=== PATIENT | female | born 1975 | race Hispanic/Latino ===

== ENCOUNTER 2018-03-10 23:15 | Emergency (ER) | payer MEDICAID, OTHER ==
[2018-03-10 23:53] LABS: APPEARANCE,URINE Clear (CLEAR); BILIRUBIN,URINE Negative (NEGATIVE); COLOR,URINE Yellow (YELLOW); GLUCOSE, URINE (UA) Negative (NEGATIVE); KETONES,URINE Negative (NEGATIVE); LEUKOCYTE ESTERASE ,URINE Negative (NEGATIVE); NITRATE,URINE Negative (NEGATIVE); OCCULT BLOOD,URINE Negative (NEGATIVE); PROTEIN,URINE Negative (NEGATIVE)
[2018-03-10 23:54] LABS: HCG,QUAL RESULT NEGATIVE (NEGATIVE)
[2018-03-10 23:57] LABS: BASOPHILS % (AUTO) 0.9 % (0.0-5.0); EOSINOPHILS % (AUTO) 5.9 % (0.0-8.0); HEMATOCRIT 34.7 % (36-48); LYMPHOCYTES % (AUTO) 29.6 % (21.0-51.0); MEAN CORPUSCULAR HEMOGLOBIN 29.9 pg (27.0-33.0); MEAN CORPUSCULAR VOLUME 87.8 fL (79-99); MONOCYTES % (AUTO) 9.1 % (3.0-13.0); NEUTROPHILS % (AUTO) 54.5 % (40.0-77.0); NUCLEATED RED BLOOD CELLS 0.1 % (0.0-0.19); PLATELET COUNT (AUTO) 296 K/uL (130-400); RED BLOOD CELL COUNT(AUTO) 3.95 MIL/uL (4.00-5.50); RED CELL DISTRIBUTION WIDTH 14.5 % (11.0-15.5); WHITE BLOOD COUNT (AUTO) 8.8 K/uL (4.8-10.8)
[2018-03-11] LABS: AMPHET/METH SCREEN,URINE NEGATIVE (NEGATIVE); BARBITURATE SCREEN, URINE NEGATIVE (NEGATIVE); BENZODIAZEPINES SCREEN,URINE NEGATIVE (NEGATIVE); CANNABINOID SCREEN,URINE NEGATIVE (NEGATIVE); COCAINE SCREEN,URINE NEGATIVE (NEGATIVE); OPIATE SCREEN,URINE NEGATIVE (NEGATIVE); PHENCYCLIDINE SCREEN,URINE NEGATIVE (NEGATIVE)
[2018-03-11 00:10] LABS: CREATININE 0.8 mg/dL (0.5-1.5); POTASSIUM 3.7 mmol/L (3.5-5.1)
[2018-03-11 00:17] LABS: INR 0.95 (0.85-1.15); PARTIAL THROMBOPLASTIN TIME 22.8 SEC (26.3-35.5)
[2018-03-11 00:21] LABS: ALBUMIN 3.6 g/dL (3.5-5.0); BILIRUBIN,TOTAL 0.5 mg/dL (0.2-1.0); TOTAL PROTEIN, SERUM 7.7 g/dL (6.0-8.3)
[2018-03-11] MEDS ORDERED: DiphenhydrAMINE HCL 50 MG/ML VIAL ONE (00:42)
[2018-03-11] MEDS ORDERED: KETOROLAC TROMETHAMINE 30MG/ML ONE (00:42)
[2018-03-11] MEDS ORDERED: METOCLOPRAMIDE 10 MG/2 ML VIAL ONE (00:42)
== END 2018-03-11 01:27 | disposition home or self-care (01) ==
LOC: EDH 23:15
DX: R51 Headache (principal); H53.8 Other visual disturbances
CPT/HCPCS: 36415; 80053; 80305; 81003; 81025; 82550; 82553; 84484; 85025; 85610; 85730; 93005; 96374; 96375; 99285; J1200; J1885; J2765

== ENCOUNTER 2019-02-28 12:04 | Emergency (ER) | payer OTHER | END 2019-02-28 13:22 | disposition home or self-care (01) | LOC: EDH 12:04 | DX: S83.8X1A Sprain of other specified parts of right knee, initial encounter (principal); W18.39XA Other fall on same level, initial encounter; Y93.01 Activity, walking, marching and hiking; Y92.69 Other specified industrial and construction area as the place of occurrence of the external cause; Y99.8 Other external cause status ==

== ENCOUNTER 2019-08-19 15:41 | Emergency (ER) | payer MEDICAID, OTHER ==
[2019-08-19 16:10] LABS: APPEARANCE,URINE Clear (CLEAR); BILIRUBIN,URINE Negative (NEGATIVE); COLOR,URINE Yellow (YELLOW); GLUCOSE, URINE (UA) Negative (NEGATIVE); KETONES,URINE Negative (NEGATIVE); LEUKOCYTE ESTERASE ,URINE Negative (NEGATIVE); NITRATE,URINE Negative (NEGATIVE); OCCULT BLOOD,URINE Negative (NEGATIVE); PH,URINE 6.5 (5.0-8.0); PROTEIN,URINE Negative (NEGATIVE); UROBILINOGEN,URINE 0.2 mg/dL (0.2-1.0)
[2019-08-19 16:15] LABS: HCG,QUAL RESULT NEGATIVE (NEGATIVE)
[2019-08-19 16:25] LABS: AMPHET/METH SCREEN,URINE NEGATIVE (NEGATIVE); BARBITURATE SCREEN, URINE NEGATIVE (NEGATIVE); BENZODIAZEPINES SCREEN,URINE NEGATIVE (NEGATIVE); CANNABINOID SCREEN,URINE NEGATIVE (NEGATIVE); COCAINE SCREEN,URINE NEGATIVE (NEGATIVE); OPIATE SCREEN,URINE NEGATIVE (NEGATIVE); PHENCYCLIDINE SCREEN,URINE NEGATIVE (NEGATIVE)
[2019-08-19] MEDS ORDERED: METOCLOPRAMIDE 10 MG TABLET ONE (16:42)
[2019-08-19] MEDS ORDERED: ACETAMINOPHEN EXTRA STRENGTH 500 MG TABLET ONE (16:43)
== END 2019-08-19 18:01 | disposition home or self-care (01) ==
LOC: EDH 15:41
DX: R51 Headache (principal); N92.6 Irregular menstruation, unspecified
CPT/HCPCS: 80305; 81003; 81025

== ENCOUNTER 2021-11-05 21:09 | Emergency (ER) | payer MEDICAID, OTHER ==
[~2021-11-05] VITALS: Ht 152.4 cm; Wt 74.8 kg
[2021-11-05 21:15] VITALS: BP 112/61
[2021-11-05] MEDS ORDERED: KETOROLAC 30MG VIAL (30MG/ML) IM ONE (22:00)
[2021-11-05] MEDS ORDERED: KETOROLAC 30MG VIAL (30MG/ML) ONE (22:17)
[2021-11-05] MEDS ORDERED: IBUP-2070 PO (23:04)
== END 2021-11-05 23:48 | disposition home or self-care (01) ==
LOC: EDH 21:09
DX: M25.521 Pain in right elbow (principal); M25.421 Effusion, right elbow; Z88.6 Allergy status to analgesic agent; Z79.899 Other long term (current) drug therapy; W22.8XXA Striking against or struck by other objects, initial encounter; Y93.89 Activity, other specified; Y92.89 Other specified places as the place of occurrence of the external cause; Y99.8 Other external cause status
CPT/HCPCS: 29105; 73080; 96372; 99283; J1885

== ENCOUNTER 2022-01-14 09:55 | Emergency (ER) | payer OTHER ==
[~2022-01-14] VITALS: Ht 152.4 cm; Wt 74.8 kg
[~2022-01-14 09:55] MED LIST: IBUP-2070 PO
[2022-01-14] MEDS ORDERED: ACET-66 PO (10:42)
[2022-01-14 11:03] VITALS: BP 145/75
== END 2022-01-14 11:04 | disposition home or self-care (01) ==
LOC: EDH 09:55
DX: M25.521 Pain in right elbow (principal); Z88.6 Allergy status to analgesic agent; Z79.1 Long term (current) use of non-steroidal anti-inflammatories (NSAID)
CPT/HCPCS: 73070

== ENCOUNTER 2023-05-12 12:00 | Emergency (ER) | payer MEDICAID, OTHER ==
[~2023-05-12] VITALS: Ht 157.5 cm; Wt 79.4 kg
[~2023-05-12 12:00] MED LIST changes: +ACET-66 PO
[2023-05-12 12:44] VITALS: BP 142/63; PULSE 88; RESP 17
[2023-05-12 14:30] LABS: RAPID GROUP A STREP positive (NEGATIVE)
[2023-05-12] MEDS ORDERED: ONDANSETRON ODT 4MG TAB SL ONE (14:30)
[2023-05-12 14:38] LABS: INFLUENZA TYPE A Negative For Type A (NEGATIVE); INFLUENZA TYPE B Negative For Type B (NEGATIVE)
[2023-05-12 14:41] LABS: COVID19 (SARS ANTIGEN RAPID) PRESUMPTIVE NEGATIVE (NEGATIVE)
[2023-05-12 14:54] LABS: HCG,QUALITATIVE URINE NEGATIVE (NEGATIVE)
[2023-05-12 14:59] LABS: ADD UA MICROSCOPIC YES; APPEARANCE,URINE CLEAR (CLEAR); BILIRUBIN,URINE NEGATIVE (NEGATIVE); COLOR,URINE LIGHT-YELLOW (YELLOW); GLUCOSE, URINE (UA) >=1000 mg/dL (NEGATIVE); KETONES,URINE 40 mg/dL (NEGATIVE); LEUKOCYTE ESTERASE ,URINE NEGATIVE Leu/uL (NEGATIVE); NITRATE,URINE NEGATIVE (NEGATIVE); PROTEIN,URINE NEGATIVE (NEGATIVE); UROBILINOGEN,URINE 0.2 mg/dL (0.2-1.0)
[2023-05-12 15:00] LABS: BACTERIA,URINE RARE /HPF (None Seen); RBC,URINE 0-1 /HPF (0-1); SQUAMOUS EPITHELIAL CELL,UR RARE /HPF (0-2); WBC,URINE 0-1 /HPF (0-1)
[2023-05-12] MEDS ORDERED: IBUP-2070 PO (15:28)
[2023-05-12] MEDS ORDERED: AMOX-426 PO (15:28)
[2023-05-12] MEDS ORDERED: CEFTRIAXONE 1G VIAL IM ONE (15:30)
[2023-05-12] MEDS ORDERED: KETOROLAC 30MG VIAL (30MG/ML) IM ONE (15:45)
== END 2023-05-12 15:47 | disposition home or self-care (01) ==
LOC: EDH 12:00
DX: J32.9 Chronic sinusitis, unspecified (principal); J02.0 Streptococcal pharyngitis; F41.9 Anxiety disorder, unspecified; Z20.822 Contact with and (suspected) exposure to COVID-19; Z87.19 Personal history of other diseases of the digestive system; Z79.899 Other long term (current) drug therapy; Z98.890 Other specified postprocedural states; Z88.6 Allergy status to analgesic agent
CPT/HCPCS: 99284; 87426; 87880; 87804 ×2; 81001; 81025; 96372 ×2; 93005; J0696; J1885

== ENCOUNTER 2023-08-30 21:43 | Emergency (ER) | payer OTHER ==
[~2023-08-30] VITALS: Ht 152.4 cm; Wt 59.0 kg
[2023-08-30 21:43] VITALS: BP 143/77; PULSE 79; RESP 16
[~2023-08-30 21:43] MED LIST changes: +AMOX-426 PO
[2023-08-30] MEDS ORDERED: CYCL-309 PO (21:52)
== END 2023-08-30 22:00 | disposition home or self-care (01) ==
LOC: EDH 21:43
DX: M62.838 Other muscle spasm (principal); R07.81 Pleurodynia; Z79.899 Other long term (current) drug therapy

== ENCOUNTER 2024-07-05 21:54 | Inpatient (IN) | payer SELFPAY ==
[~2024-07-05] VITALS: Ht 154.9 cm; Wt 57.8 kg
[~2024-07-05 21:54] MED LIST changes: +CYCL-309 PO
[2024-07-05 22:41] LABS: BASOPHILS # (AUTO) 0.06 K/uL (0.00-0.20); BASOPHILS % (AUTO) 0.7 % (0.0-5.0); EOSINOPHILS # (AUTO) 0.19 K/uL (0.00-0.70); EOSINOPHILS % (AUTO) 2.2 % (0.0-8.0); HEMATOCRIT 36.6 % (36-48); IMMATURE GRANULOCYTE ABSOLUTE 0.03 K/uL (0-1); LYMPHOCYTES # (AUTO) 3.4 K/uL (1.0-4.8); LYMPHOCYTES % (AUTO) 39.4 % (21.0-51.0); MEAN CORPUSCULAR HEMOGLOBIN 31.8 pg (27.0-33.0); MEAN CORPUSCULAR HGB CONC 36.1 g/dL (32.0-36.0); MEAN CORPUSCULAR VOLUME 88.2 fL (79-99); MONOCYTES # (AUTO) 0.7 K/uL (0.1-1.0); MONOCYTES % (AUTO) 7.8 % (3.0-13.0); NEUTROPHILS # (AUTO) 4.3 K/uL (1.8-7.7); NEUTROPHILS % (AUTO) 49.6 % (40.0-77.0); PLATELET COUNT (AUTO) 263 K/uL (130-400); RED BLOOD CELL COUNT(AUTO) 4.15 MIL/uL (4.00-5.50); RED CELL DISTRIBUTION WIDTH 11.6 % (11.0-15.5); WHITE BLOOD COUNT (AUTO) 8.7 K/uL (4.8-10.8)
[2024-07-05 22:52] LABS: CREATININE 0.6 mg/dL (0.5-1.0); POTASSIUM 3.6 mmol/L (3.5-5.1)
[2024-07-05 23:04] LABS: APPEARANCE,URINE CLEAR (CLEAR); BILIRUBIN,URINE NEGATIVE (NEGATIVE); COLOR,URINE LIGHT-YELLOW (YELLOW); GLUCOSE, URINE (UA) >=1000 mg/dL (NEGATIVE); KETONES,URINE NEGATIVE (NEGATIVE); LEUKOCYTE ESTERASE ,URINE NEGATIVE Leu/uL (NEGATIVE); NITRATE,URINE NEGATIVE (NEGATIVE); OCCULT BLOOD,URINE NEGATIVE (NEGATIVE); PH,URINE 5.5 (5.0-8.0); PROTEIN,URINE NEGATIVE (NEGATIVE); SQUAMOUS EPITHELIAL CELL,UR RARE /HPF (0-2); UROBILINOGEN,URINE 0.2 mg/dL (0.2-1.0); WBC,URINE 0-1 /HPF (0-1)
[2024-07-05] MEDS: 0.9%NACL 1000ML 1,000 ML IV ONE (23:47)
[2024-07-05] MEDS: INSULIN humuLIN R 100 UNIT/ML 3ML IV ONE (23:48)
[2024-07-06] MEDS: ondanSETRON 4MG INJ IVP ONE (00:19)
[2024-07-06] MEDS: morPHINE 2 MG SYG IVP ONE (00:20)
[2024-07-06] MEDS ORDERED: morPHINE 2 MG SYG IV PRN (02:00)
[2024-07-06] MEDS ORDERED: GLUCAGON 1MG KIT 1 MG ML IM PRN (02:00)
[2024-07-06] MEDS ORDERED: DEXTROSE 50%-WATER 50 ML DISP.SYRIN IV PRN (02:00)
[2024-07-06] MEDS ORDERED: MAGNESIUM 2GM PREMIX 50ML 50 ML IV PRN (02:00)
[2024-07-06 03:14] VITALS: O2SAT 97
[2024-07-06] MEDS: 0.9%NACL 1000ML 1,000 ML IV SCH (03:26)
[2024-07-06 03:36] VITALS: BP 117/73; PULSE 64; RESP 18; TEMP 97.8
[2024-07-06] MEDS: INSULIN humuLIN R 100 UNIT/ML 3ML SQ SCH (05:58)
[2024-07-06] MEDS: PoTASSium chloRIDE 20MEQ/100ML 100 ML IV PRN (06:15)
[2024-07-06 07:20] LABS: BASOPHILS # (AUTO) 0.05 K/uL (0.00-0.20); BASOPHILS % (AUTO) 0.6 % (0.0-5.0); EOSINOPHILS # (AUTO) 0.26 K/uL (0.00-0.70); EOSINOPHILS % (AUTO) 3.2 % (0.0-8.0); HEMATOCRIT 35.1 % (36-48); IMMATURE GRANULOCYTE ABSOLUTE 0.02 K/uL (0-1); LYMPHOCYTES # (AUTO) 3.6 K/uL (1.0-4.8); LYMPHOCYTES % (AUTO) 44.6 % (21.0-51.0); MEAN CORPUSCULAR VOLUME 91.4 fL (79-99); MONOCYTES # (AUTO) 0.6 K/uL (0.1-1.0); MONOCYTES % (AUTO) 7.7 % (3.0-13.0); NEUTROPHILS # (AUTO) 3.5 K/uL (1.8-7.7); NEUTROPHILS % (AUTO) 43.7 % (40.0-77.0); PLATELET COUNT (AUTO) 225 K/uL (130-400); RED BLOOD CELL COUNT(AUTO) 3.84 MIL/uL (4.00-5.50); RED CELL DISTRIBUTION WIDTH 11.8 % (11.0-15.5)
[2024-07-06 07:28] LABS: HEMOGLOBIN A1C 12.5 % (4.0-6.0)
[2024-07-06 07:34] LABS: ALBUMIN 3.2 g/dL (3.5-5.0); CREATININE 0.5 mg/dL (0.5-1.0); MAGNESIUM 1.5 mg/dL (1.80-2.40); POTASSIUM 3.9 mmol/L (3.5-5.1); TOTAL PROTEIN, SERUM 6.7 g/dL (6.0-8.3)
[2024-07-06 08:00] VITALS: BP 109/68; PULSE 66; RESP 18; TEMP 97.9
[2024-07-06] MEDS: FAMOTIDINE 20MG VIAL IV SCH (09:00)
[2024-07-06] MEDS ORDERED: METF-446 PO (09:46)
[2024-07-06] MEDS ORDERED: SITA50TA PO (09:46)
[2024-07-06] MEDS ORDERED: CANA300T PO (09:46)
[2024-07-06 12:00] VITALS: BP 119/70; PULSE 58; RESP 18; TEMP 98.1
== END 2024-07-06 12:00 | disposition home or self-care (01) | DRG 395 ==
LOC: EDH 21:54 → EDHIP 21:55 → 3AH 07-06 03:07
PROVIDERS: ADMIT Internal Medicine; ATTEND Internal Medicine
DX: K42.0 Umbilical hernia with obstruction, without gangrene (principal); E11.65 Type 2 diabetes mellitus with hyperglycemia; F41.9 Anxiety disorder, unspecified; Z88.6 Allergy status to analgesic agent
CPT/HCPCS: 36415; 74176; 80048; 80053; 81001; 82948; 83036; 83735; 85025; 96361; 96374; G0378; J1815; J2270; J2405; J3480; J7030